=== PATIENT | female | born 1970 | race Caucasian/White ===

== ENCOUNTER → 2017-03-19 | Outpatient (CLI) | payer OTHER ==
--- NOTE | 2017-03-19 15:12 | RAD ---
Chest, 2 views, 03/19/2017: History: Cough The heart size and pulmonary vascularity are normal. A tiny nodule in the left apex is probably a calcified granuloma. No pulmonary infiltrates are seen. There is no evidence of pleural fluid. Moderate spurring is present in the spine. IMPRESSION: No acute cardiopulmonary abnormality is detected.
== END | disposition home or self-care (01) ==
LOC: PMG 14:33
PROVIDERS: ATTEND Physician Assistant Medical
DX: R05 Cough (principal); M46.00 Spinal enthesopathy, site unspecified
CPT/HCPCS: 71046

== ENCOUNTER → 2019-10-03 | Outpatient (CLI) | payer OTHER ==
--- NOTE | 2019-10-03 16:31 | RAD ---
AP and Lateral Views of the Chest 10/03/2019 12:00 AM Indication: Reason: CHEST PAIN, HYPOTENSION / Spl. Instructions: / History: Comparison: CXR 129 Findings: There is no focal consolidation or infiltrate identified. The cardiomediastinal silhouette is within normal limits. There is no evidence of pneumothorax or pleural effusion. No acute osseous abnormalities are identified. Impression: No evidence of acute cardiopulmonary process. Electronically signed by: Vinicio Heck MD (10/03/2019 4:28 PM) [id number]
== END | disposition home or self-care (01) ==
LOC: RAD 15:49
PROVIDERS: ATTEND Physician Assistant Medical
DX: I95.9 Hypotension, unspecified (principal); R07.9 Chest pain, unspecified
CPT/HCPCS: 71046

== ENCOUNTER → 2020-10-27 | Outpatient (CLI) | payer OTHER ==
--- NOTE | 2020-11-01 10:24 | RAD ---
EXAM: Bilateral digital screening mammogram with tomosynthesis. HISTORY: 49-year-old female presents for screening mammography. TECHNIQUE: Full-field digital craniocaudal and mediolateral oblique 2D and 3D tomosynthesis images of both breasts are obtained for evaluation. Computer aided detection was applied. COMPARISON: 05/18/2015. BREAST PARENCHYMAL DENSITY: Level B - Scattered fibroglandular densities. FINDINGS: There is no new suspicious mass, microcalcification or region of architectural distortion. There is a stable circumscribed nodule within the lateral left breast at mid depth, the appearance of which favors a benign intramammary lymph node. There are stable areas of asymmetry within both breas ts. IMPRESSION: BI-RADS Category 2: Benign finding(s). RECOMMENDATION: Annual mammography is recommended. If your mammogram demonstrates that you have dense breast tissue, which could hide abnormalities, and if you have other risk factors for breast cancer that have been identified, you might benefit from s upplemental screening tests that may be suggested by your ordering physician. Dense breast tissue, i n and of itself, is a relatively common condition. This information is not provided to cause undue c oncern, but rather to raise your awareness and to promote discussion with your physician regarding th e presence of other risk factors, in addition to dense breast tissue. A report of your mammography re sults will be sent to you and your physician. You should contact your physician if you have any ques tions or concerns regarding this report. Mammography is a sensitive method for finding small breast cancers, but it does not detect them all a nd is not a substitute for careful clinical examination. A negative mammogram does not negate a clin ically suspicious finding and should not result in delay in biopsying a clinically suspicious abnorma lity. PQRS compliance statement - Patient information was entered into a reminder system with a target due date for the next mammogram. "Our facility is accredited by the [employer] Mammography [employer]." Electronically signed by: Nettie Martines MD (11/01/2020 10:22 AM) [id number]
== END ==
LOC: MAMMO 08:04
PROVIDERS: ATTEND Physician Assistant Medical
DX: Z12.31 Encounter for screening mammogram for malignant neoplasm of breast (principal); N63.20 Unspecified lump in the left breast, unspecified quadrant
CPT/HCPCS: 77063; 77067

== ENCOUNTER 2021-04-05 12:11 | Emergency (ER) | payer OTHER, BC ==
[~2021-04-05] VITALS: Ht 167.6 cm; Wt 71.0 kg
[2021-04-05] MEDS ORDERED: PROCHLORPERAZINE 10 MG/2 ML VIAL. IV ONE (13:15)
[2021-04-05] MEDS ORDERED: IV NORMAL SALINE 1,000ML 1,000 ML IV ONE (13:15)
[2021-04-05] MEDS ORDERED: KETOROLAC 15 MG/ML VIAL. IVP ONE (13:15)
[2021-04-05] MEDS ORDERED: diphenhydrAMINE 50 MG/ML VIAL IVP ONE (13:15)
--- NOTE | 2021-04-05 13:18 | PHYS DOC ---
Past History Past Surgical History: Cholecystectomy, Gastric Bypass, Hysterectomy (KEKE SINGH APRN) Alcohol Use: None (KEKE SINGH APRN) General Adult EDM: Chief Complaint: HEADACHE HPI: HPI: Patient is a 50-year-old female that presents today with headache. Patient states that she fell last week, and since that time she has had some nagging nausea, she has had a headache with light sensitivity, and she just has not felt like her normal self. Patient states that she had the back of her head when she fell she had no loss of consciousness at the time of the fall, and she states she is on no blood thinning medications. (KEKE SINGH APRN) Review of Systems: Review of Systems: Constitutional: Denies fever or chills Eyes: Denies change in visual acuity HENT: Occipital head pain and neck pain denies nasal congestion or sore throat Respiratory: Denies cough or shortness of breath Cardiovascular: Denies chest pain or edema GI: Denies abdominal pain, nausea, vomiting, bloody stools or diarrhea : Denies dysuria Musculoskeletal: Denies back pain or joint pain Integument: Denies rash Neurologic: Headache and light sensitivity denies headache, focal weakness or sensory changes Endocrine: Denies polyuria or polydipsia Lymphatic: Denies swollen glands Psychiatric: Denies depression or anxiety (KEKE SINGH APRN) Current Medications: Current Meds: Current Medications Medications (Trade) Dose Ordered Sig/Saloni Start Time Stop Time Status Last Admin Dose Admin Diphenhydramine HCl (Benadryl) 25 mg 1X ONCE 04/05/21 13:15 04/05/21 13:16 Ketorolac Tromethamine (Toradol 15mg Vial) 15 mg 1X ONCE 04/05/21 13:15 04/05/21 13:16 Prochlorperazine Edisylate (Compazine) 10 mg 1X ONCE 04/05/21 13:15 04/05/21 13:16 Sodium Chloride 1,000 ml @ 1,000 mls/hr 1X ONCE 04/05/21 13:15 04/05/21 14:14 (KEKE SINGH APRN) Allergies: Allergies: Allergies Coded Allergies Type Severity Reaction Last Updated Verified No Known Drug Allergies 04/05/21 No (KEKE SINGH APRN) Physical Exam: PE: Constitutional: Well developed, well nourished, no acute distress, non-toxic appearance. [] HENT: Inspection of palpation notes occipital pain with tenderness no laceration or abrasion noted, bilateral external ears normal, oropharynx moist, no oral exudates, nose normal. [] Eyes: PERRLA, EOMI, conjunctiva normal, no discharge. [] Neck: Normal range of motion, tenderness to the neck including midline, supple, no stridor, Cardiovascular:Heart rate regular rhythm, no murmur [] Lungs & Thorax: Bilateral breath sounds clear to auscultation [] Abdomen: Bowel sounds normal, soft, no tenderness, no masses, no pulsatile masses. [] Skin: Warm, dry, no erythema, no rash. [] Back: No tenderness, no CVA tenderness. [] Extremities: No tenderness, no cyanosis, no clubbing, ROM intact, no edema. [] Neurologic: Photophobia, alert and oriented X 3, normal motor function, normal sensory function, no focal deficits noted. [] Psychologic: Affect normal, judgement normal, mood normal. 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 Automated exposure control 2. Adjustment of the mA and/or kV according to patient size 3. Use of iterative reconstruction technique CT head and cervical spine without contrast 04/05/2021 1:08 PM INDICATION: Fall with headache and neck pain COMPARISON: Fall with headache and pain TECHNIQUE: Multiple axial CT images of the head were obtained from skull base through the vertex without intravenous contrast. Multiple axial CT images of the cervical spine were obtained without intravenous contrast. Coronal and sagittal reformats are provided. FINDINGS: Head: Ventricles, sulci and basal cisterns are within normal limits. There is no hydrocephalus. Tobar-white matter differentiation is normal. There is no acute intracranial hemorrhage. There is no mass, mass effect or midline shift. Posterior fossa is normal in appearance. Visualized portions of the orbits are normal. Paranasal sinuses are well aerated. Mastoid air cells are well aerated. Scalp and calvaria are normal. Cervical spine: Alignment of the cervical spine is normal. Skull base is intact. Craniocervical junction is normal in appearance. Atlantoaxial articulation is normal. Vertebral body heights are maintained without evidence for acute fracture. Mild multilevel facet arthropathy. Mild uncovertebral joint disease at C5-C6 and C6-C7. Mild disc height loss at C5-C6 and C6-C7. At C5-C6, there is mild bilateral neuroforaminal stenosis. At C6-C7, there is mild bilateral neuroforaminal stenosis. Mild neural foraminal stenosis. No significant osseous spinal canal stenosis. Transverse foramen are intact. There is no prevertebral soft tissue swelling. Thyroid gland is normal in ap pearance. Visualized portions of the lung apices are normal without evidence for suspicious pulmonary nodule or infiltrate. IMPRESSION: 1. No acute intracranial hemorrhage. 2. No acute fracture or malalignment of the cervical spine. Mild cervical spondy losis. Electronically signed by: Yaritza Arellano MD (04/05/2021 2:25 PM) [id number][] (KEKE SINGH APRN) Heart Score: C/O Chest Pain: N/A Risk Factors: Risk Factors: DM, Current or recent (<one month) smoker, HTN, HLP, family history of CAD, obesity. Risk Scores: Score 0 - 3: 2.5% MACE over next 6 weeks - Discharge Home Score 4 - 6: 20.3% MACE over next 6 weeks - Admit for Clinical Observation Score 7 - 10: 72.7% MACE over next 6 weeks - Early Invasive Strategies (KEKE SINGH APRN) Course & Med Decision Making: Course & Med Decision Making Pertinent Labs and Imaging studies reviewed. (See chart for details) 1430 patient states her headache has improved since she has gotten her medications, reviewed radiological results with patient and did inform her there was no acute processes noted on the CT scan at this time. Patient will be sent home after her liter of fluids is infused with precautions to follow-up with her primary care physician if her symptoms do not get any better over the next couple of days. Patient is informed to return to the emergency department if she has increased headache that is not relieved by anything, she has a change in mental status, she inability to use 1 side of her body, facial droop, slurred speech, or facial droop is noted. (KEKE SINGH APRN) Dragon Disclaimer: Dragon Disclaimer: This electronic medical record was generated, in whole or in part, using a voice recognition dictation system. (KEKE SINGH APRN) Attending Co-Sign The patient was seen and interviewed as well as examined at the bedside. The chart was reviewed. The case was discussed. Agree with the plan of care. (IFEOMA PEREZ DO) Departure Departure: Impression: Primary Impression: Post-concussion headache Disposition: HOME / SELF CARE / HOMELESS Condition: STABLE Referrals: MAYKEL RAMSAY (PCP) Patient Instructions: Concussion and Brain Injury, Headache, FAQs Additional Instructions: [id number] Tylenol and/or ibuprofen as labeled directed for pain Increase by mouth fluids over the next couple of days Follow-up with your primary care physician in 3 to 5 days if your symptoms have not improved Return to the emergency department if you have a change in level of consciousness, you notice a facial droop, you notice slurred speech, your headache worsens in any way, you have probably using 1 side your body than the other, or you have a sudden onset of blurred or double vision. KEKE SINGH APRN Apr 05, 2021 13:18 IFEOMA PEREZ DO Apr 08, 2021 08:34
--- NOTE | 2021-04-05 14:28 | RAD ---
PQRS Compliance Statement: One or more of the following individualized dose reduction techniques were utilized for this examinat ion: 1. Automated exposure control 2. Adjustment of the mA and/or kV according to patient size 3. Use of iterative reconstruction technique CT head and cervical spine without contrast 04/05/2021 1:08 PM INDICATION: Fall with headache and neck pain COMPARISON: Fall with headache and pain TECHNIQUE: Multiple axial CT images of the head were obtained from skull base through the vertex with out intravenous contrast. Multiple axial CT images of the cervical spine were obtained without intrav enous contrast. Coronal and sagittal reformats are provided. FINDINGS: Head: Ventricles, sulci and basal cisterns are within normal limits. There is no hydrocephalus. Tobar-white matter differentiation is normal. There is no acute intracranial hemorrhage. There is no mass, mass e ffect or midline shift. Posterior fossa is normal in appearance. Visualized portions of the orbits are normal. Paranasal sinuses are well aerated. Mastoid air cells a re well aerated. Scalp and calvaria are normal. Cervical spine: Alignment of the cervical spine is normal. Skull base is intact. Craniocervical junction is normal in appearance. Atlantoaxial articulation is normal. Vertebral body heights are maintained without evidence for acute fracture. Mild multilevel facet arthropathy. Mild uncovertebral joint disease at C5-C6 and C6-C7. Mild disc hei ght loss at C5-C6 and C6-C7. At C5-C6, there is mild bilateral neuroforaminal stenosis. At C6-C7, the re is mild bilateral neuroforaminal stenosis. Mild neural foraminal stenosis. No significant osseous spinal canal stenosis. Transverse foramen are intact. There is no prevertebral soft tissue swelling. Thyroid gland is normal in appearance. Visualized port ions of the lung apices are normal without evidence for suspicious pulmonary nodule or infiltrate. IMPRESSION: 1. No acute intracranial hemorrhage. 2. No acute fracture or malalignment of the cervical spine. Mild cervical spondylosis. Electronically signed by: Yaritza Arellano MD (04/05/2021 2:25 PM) [id number]
[2021-04-05 14:57] VITALS: BP 110/70
== END 2021-04-05 14:57 | disposition home or self-care (01) ==
LOC: ER 12:11
DX: R51.9 Headache, unspecified (principal); F07.81 Postconcussional syndrome
CPT/HCPCS: 70450; 72125; 96361; 96374; 96375; 99284; J0780; J1200; J1885; J7030